=== PATIENT | female | born 1950 | race Two or more races ===

== ENCOUNTER → 2016-10-18 | Outpatient (CLI) | payer MEDICARE, BC ==
--- NOTE | 2016-10-18 11:24 | RADRPT ---
PROCEDURE: XR Pelvis and left Hip. CLINICAL INDICATION: Left hip pain. TECHNIQUE: Three views of the pelvis and left hip are available for review. COMPARISON: No prior studies are available for comparison. FINDINGS: No acute fracture or dislocation is seen. No radiopaque foreign body is identified. The osseous min eralization is normal. The sacroiliac joints, as visualized, are grossly unremarkable. Mild degenera tive changes of bilateral hip joints are noted. IMPRESSION: 1. No acute fracture or dislocation. 2. 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 RPTAT: JJ .Ladonna Bailey MD, Date Time Electronically viewed and signed by .Ladonna Bailey MD, on 10/18/2016 11:23 .N/
== END | disposition home or self-care (01) ==
LOC: HKI 10:21
PROVIDERS: ATTEND Orthopaedic Surgery
DX: M25.551 Pain in right hip (principal); M25.552 Pain in left hip; M70.61 Trochanteric bursitis, right hip; M70.62 Trochanteric bursitis, left hip
CPT/HCPCS: 73523; G0463